=== PATIENT | female | born 1980 | race Caucasian/White ===

== ENCOUNTER 2017-05-31 21:04 | Emergency (ER) | payer BC, MEDICAID ==
[~2017-05-31] VITALS: Ht 167.6 cm; Wt 78.7 kg
[~2017-05-31 21:04] MED LIST: BACTDS PO; CEPH-443 PO
[2017-05-31 21:21] VITALS: Ht 167.6 cm; Wt 78.7 kg
[2017-05-31] MEDS ORDERED: FLUT9.9S NASAL (23:04)
[2017-05-31] MEDS ORDERED: LEVO5TAB28 PO (23:04)
[2017-05-31] MEDS ORDERED: BENZ100C70 PO (23:04)
--- NOTE | 2017-05-31 23:16 | ERD ---
ER Documentation Chief Complaint Chief Complaint cough x 3 days, swelling of both fingers, and tongue HPI 36-year-old female complaining of nasal congestion, cough, and itchy throat. Patient took Mucinex and felt that she received allergic reaction to the medication. She has not had any troubles breathing. Denies any use of breath. Has URI symptoms and would like medication to alleviate her symptoms. Denies any fevers. No sick contacts. ROS All systems reviewed and are negative except as per history of present illness. Medications Home Meds Active Scripts Levocetirizine Dihydrochloride (Xyzal) 5 Mg Tablet, 5 MG PO QPM, #30 TAB Prov:JOHN RAMIREZ PA-C 05/31/17 Benzonatate* (Tessalon Perle*) 100 Mg Capsule, 100 MG PO Q8H Y for COUGH, #30 CAP Prov:JOHN RAMIREZ PA-C 05/31/17 Fluticasone Propionate (Flonase Allergy Relief) 9.9 Ml Martin.susp, 1 SPRAY NASAL DAILY, #1 BOTTLE TO EACH NOSTRIL Prov:JOHN RAMIREZ PA-C 05/31/17 Sulfamethoxazole-Trimethoprim* (Bactrim* DS) 800-160 Mg Tab, 1 TAB PO BID for 7 Days, TAB Prov:JOHN RAMIREZ PA-C 08/08/15 Cephalexin* (Keflex*) 500 Mg Capsule, 500 MG PO QID for 7 Days, CAP Prov:JOHN RAMIREZ PA-C 08/08/15 Allergies Allergies: Coded Allergies: No Known Allergy (Unverified , 05/31/17) PMhx/Soc Medical and Surgical Hx: pt denies Medical Hx History of Surgery: Yes () Anesthesia Reaction: No Hx Neurological Disorder: No Hx Respiratory Disorders: No Hx Cardiac Disorders: No Hx Psychiatric Problems: No Hx Miscellaneous Medical Probl: No Hx Alcohol Use: No Hx Substance Use: No Hx Tobacco Use: No Smoking Status: Former smoker Physical Exam Vitals Vital Signs Date Time Temp Pulse Resp B/P Pulse Ox O2 Delivery O2 Flow Rate FiO2 05/31/17 21:21 98.4 78 20 124/64 98 Physical Exam GENERAL: The patient is well-appearing, well-nourished, in no acute distress HEENT: Atraumatic. Conjunctivae are pink. Pupils equal, round, and reactive to light. There is no scleral icterus. Tympanic membranes clear bilaterally. Oropharynx clear. No nystagmus or photophobia. NECK: C-spine is soft and supple. There is no meningismus. There is no cervical lymphadenopathy. CHEST: Clear to auscultation bilaterally. There are no rales, wheezes or rhonchi. HEART: Regular rate and rhythm. No murmurs, clicks, rubs or gallops. No S3 or S4. Procedures/MDM MDM: 36-year-old female complaining of cough with nasal congestion and URI type symptoms. Patient does not have any facial swelling and no shortness of breath. Patient's vital signs are stable. Patient is nontoxic-appearing. Patient does not show signs of anaphylaxis. I will treat patient's URI symptoms and recommend she refrain from using Mucinex in the future. Patient is told if symptoms change or worsen to return to the emergency room immediately. All questions answered at discharge. Departure Diagnosis: Primary Impression: URI (upper respiratory infection) Condition: Stable Patient Instructions: Uri, Viral, No Abx (Adult) Additional Instructions: FOLLOW UP WITH YOUR PRIMARY CARE PHYSICIAN TOMORROW.Return to this facility if you are not improving as expected. JOHN RAMIREZ PA-C May 31, 2017 23:16
== END 2017-05-31 23:10 | disposition home or self-care (01) ==
LOC: FTE 21:04
DX: J06.9 Acute upper respiratory infection, unspecified (principal); Z87.891 Personal history of nicotine dependence
CPT/HCPCS: 99284